=== PATIENT | female | born 1945 | race Caucasian/White ===

== ENCOUNTER → 2016-08-10 14:27 | Outpatient (CLI) | payer MEDICARE ==
[2009-11-02 09:29] VITALS: BMI 28.9
== END | disposition home or self-care (01) ==
LOC: D.MRI 14:27
DX: M54.16 Radiculopathy, lumbar region (principal)

== ENCOUNTER → 2018-10-06 07:48 | Outpatient (CLI) | payer MEDICARE ==
[2009-11-02 09:29] VITALS: BMI 28.9
== END | disposition home or self-care (01) ==
LOC: D.HCCARDIO 07:48
PROVIDERS: ATTEND Internal Medicine Cardiovascular Disease
DX: I20.9 Angina pectoris, unspecified (principal)

== ENCOUNTER 2019-01-08 14:40 | Emergency (ER) | payer OTHER, MEDICARE ==
[~2019-01-08] VITALS: Ht 167.6 cm; Wt 78.6 kg
[2019-01-08 14:47] VITALS: Ht 167.6 cm; Wt 78.6 kg
[2019-01-08] MEDS ORDERED: HYDROCODON-ACE1 EA10 PO (14:51)
[2019-01-08] MEDS ORDERED: AMBIEN10 MG PO (14:51)
[2019-01-08] MEDS ORDERED: TOPROL XL50 MG PO (14:52)
[2019-01-08] MEDS ORDERED: XANAX0.5 MG PO (14:53)
[2019-01-08] MEDS ORDERED: VITAMIN D31000 UNI2 PO (14:54)
[2019-01-08 17:05] VITALS: BP 183/102
== END 2019-01-08 17:07 | disposition home or self-care (01) ==
LOC: D.ER 14:40
DX: R51 Headache (principal); M54.2 Cervicalgia; V43.62XA Car passenger injured in collision with other type car in traffic accident, initial encounter; I10 Essential (primary) hypertension

== ENCOUNTER → 2019-01-20 10:35 | Outpatient (CLI) | payer MEDICARE ==
[2019-01-08 14:47] VITALS: BMI 27.9
[~2019-01-20 10:35] MED LIST: AMBIEN10 MG PO; HYDROCODON-ACE1 EA10 PO; TOPROL XL50 MG PO; VITAMIN D31000 UNI2 PO; XANAX0.5 MG PO
== END | disposition home or self-care (01) ==
LOC: D.US 10:35
PROVIDERS: ATTEND Family Medicine
DX: N64.4 Mastodynia (principal)

== ENCOUNTER → 2019-11-26 12:08 | Outpatient (CLI) | payer MEDICARE ==
[2019-01-08 14:47] VITALS: BMI 27.9
== END | disposition home or self-care (01) ==
LOC: D.HCCECHO 11-25 13:00
PROVIDERS: ATTEND Internal Medicine Cardiovascular Disease
DX: I34.0 Nonrheumatic mitral (valve) insufficiency (principal)